=== PATIENT | female | born 1975 ===

== ENCOUNTER 2023-11-14 05:26 | Day surgery (SDC) | payer OTHER ==
[2023-11-11 13:20] VITALS: BP 106/72
[~2023-11-14] VITALS: Ht 152.4 cm; Wt 45.4 kg
[2023-11-14] MEDS ORDERED: CEFOXITIN SODIUM 2,000 MG VIAL IV ONE (06:27)
[2023-11-14] MEDS ORDERED: POVIDONE-IODINE 118 ML BOTT TOP ONE (07:09)
[2023-11-14] MEDS ORDERED: KETOROLAC TROMETHAMINE 30 MG VIAL IU ONE (09:15)
== END 2023-11-14 13:40 | disposition home or self-care (01) ==
LOC: CIR.AMB 05:26
PROVIDERS: ATTEND Obstetrics & Gynecology Gynecologic Oncology
DX: N87.1 Moderate cervical dysplasia (principal); N72 Inflammatory disease of cervix uteri